=== PATIENT | male | born 1975 | race Caucasian/White ===

== ENCOUNTER 2018-03-19 09:49 | Emergency (ER) | payer BC ==
[2018-03-19 09:59] VITALS: TEMP 98.3; BMI 29.1
--- NOTE | 2018-03-19 10:01 | PDOC ---
History of Present Illness - General Chief Complaint: Psychiatric Stated Complaint: PCP SENT Time Seen by Provider: 03/19/18 09:56 - History of Present Illness Initial Comments: 42 year old male with PMH of HTN, and GERD presenting with multiple episodes of tachycardia, nausea, dry heaving, and trouble sleeping. He has had episodes of nausea/vomiting/ dry heaving since college before exams or during stressful situations. Currently he has had notice increased frequency of these episodes since July. States that he woke up three times last night with racing thoughts, fast heart rate, sara would then evolve into dry heaving. He is being treated by Dr. 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 States when these episodes occur, he is actively worried that something very bad is going to happen and that worsens his symptoms. In fact he has been slightly anxious to eat food because of these episodes. He denies any chest pain, diaphoresis, or visual symptoms during these episodes. He is unsure what triggers these symptoms but, again, did have them during anxious pre-test days in college. 03/19/18 10:09 Past History - Past Medical History Allergies/Adverse Reactions: Allergies Allergy/AdvReac Type Severity Reaction Status Date / Time fish derived Allergy Intermediate Swelling Verified 03/19/18 10:00 Penicillins Allergy Intermediate Hives Verified 03/19/18 10:57 shellfish derived Allergy Intermediate Swelling Verified 03/19/18 10:00 Home Medications: Ambulatory Orders Atorvastatin Ca [Lipitor] 20 mg PO HS 03/19/18 Motillium 10 mg PO TID 03/19/18 Olmesartan Medoxomil [Benicar] 20 mg PO DAILY 03/19/18 Ondansetron HCl [Zofran] 4 mg PO TID PRN 03/19/18 Pantoprazole Sodium [Protonix] 40 mg PO DAILY 03/19/18 Rifaximin [Xifaxan] 0 mg PO BID 03/19/18 COPD: No GI Disorders: Yes HTN: Yes - Suicide/Smoking/Psychosocial Hx Smoking History: Never smoked Have you smoked in the past 12 months: No Information on smoking cessation initiated: No Hx Alcohol Use: No Drug/Substance Use Hx: No Substance Use Type: None Review of Systems - Review of Systems Constitutional: No: Chills, Diaphoresis, Fever Respiratory: No: Cough, Orthopnea, Shortness of Breath Cardiac (ROS): No: Chest Pain ABD/GI: No: Diarrhea, Nausea, Vomiting : No: Burning, Dysuria, Discharge Musculoskeletal: No: Back Pain, Joint Pain, Joint Swelling Integumentary: No: Flushing, Lesions, Lumps Neurological: No: Headache, Numbness, Paresthesia, Tremors Psychiatric: Yes: Anxiety, Sleep Pattern Change, Change in Appetite. No: Frequent Crying, Stressors Hematologic/Lymphatic: No: Anemia, Blood Clots, Easy Bleeding *Physical Exam - Vital Signs Last Vital Signs Temp Pulse Resp BP Pulse Ox 98.3 F 98 H 16 137/87 100 03/19/18 09:50 03/19/18 09:50 03/19/18 09:50 03/19/18 09:50 03/19/18 09:50 - Physical Exam General Appearance: Yes: Nourished, Appropriately Dressed. No: Apparent Distress HEENT: positive: EOMI, MONE, Normal ENT Inspection, Normal Voice Neck: positive: Trachea midline, Normal Thyroid, Supple. negative: Tender, Rigid Respiratory/Chest: positive: Lungs Clear, Normal Breath Sounds. negative: Chest Tender, Respiratory Distress, Accessory Muscle Use Cardiovascular: positive: Regular Rhythm, Regular Rate Gastrointestinal/Abdominal: positive: Normal Bowel Sounds, Flat, Soft. negative : Tender Lymphatic: negative: Adenopathy, Tenderness Musculoskeletal: negative: Normal Inspection, CVA Tenderness Extremity: positive: Normal Inspection, Normal Range of Motion. negative: Normal Capillary Refill, Tender Integumentary: positive: Normal Color, Dry, Warm Neurologic: positive: cardiographer II-XII NML intact, Fully Oriented, Alert, Normal Mood/ Affect, Normal Response, Motor Strength 5/5 ED Treatment Course - LABORATORY CBC & Chemistry Diagram: 03/19/18 11:43 03/19/18 10:36 Medical Decision Making - Medical Decision Making 42 year old male with PMH of HTN, HLD, and GERD presenting with acute exacerbation of what appears to be anxiety related GI symptoms. He clearly describes the sensation of worry and tachycardia preceding his nausea/ vomiting / dry heaving. His EKG was NSR (rate 92, OK 152, QRS 90, QTc 432, ST or T wave changes). He tolerated PO rackers and water. He understands the workup and results. He would like to go home. We discussed the case with Dr. Deluna and he is OK with outpatient follow up and likely outpatient PCP. 03/19/18 11:59 *DC/Admit/Observation/Transfer Diagnosis at time of Disposition: Nausea & vomiting Qualifiers: Vomiting type: unspecified Vomiting Intractability: non-intractable Qualified Code(s): R11.2 - Nausea with vomiting, unspecified - Discharge Dispostion Disposition: HOME Condition at time of disposition: Stable Decision to Admit order: No - Referrals Referrals: Miguel Deluna MD [Primary Care Provider] - - Patient Instructions Printed Discharge Instructions: Nausea and Vomiting-Adult Additional Instructions: Please mind your diet and try to stay well hydrated with water. Dr. Deluna prescribed you a medicine to help with your anxiety that you should take as directed. Please follow up with him and schedule an appointment with the psychiatrist that he sets you up with. Please return to the ED if you have new or worsening symptoms. - Post Discharge Activity
[2018-03-19] MEDS ORDERED: SODIUM CHLORIDE 1,000 ML IV STA (10:24)
[2018-03-19 10:47] LABS: URINE APPEARANCE CLEAR; URINE BILIRUBIN NEGATIVE (<2.0 mg/dL); URINE COLOR LTYELLOW; URINE GLUCOSE (UA) NEGATIVE (NEGATIVE); URINE KETONE NEGATIVE (NEGATIVE); URINE LEUK ESTERASE NEGATIVE (NEGATIVE); URINE NITRITE NEGATIVE (NEGATIVE); URINE PROTEIN NEGATIVE (NEGATIVE); URINE UROBILINOGEN NEGATIVE mg/dL (0.2-1.0)
[2018-03-19 10:56] LABS: ALBUMIN 4.4 g/dl (3.4-5.0); ANION GAP 5 MMOL/L (8-16); BLOOD UREA NITROGEN 18 mg/dL (7-18); CALCIUM 9.1 mg/dL (8.5-10.1); CHLORIDE 105 mmol/L (98-107); CO2 29 mmol/L (21-32); GLUCOSE,RANDOM 109 mg/dL (74-106); SODIUM 139 mmol/L (136-145)
[2018-03-19 11:01] LABS: BILIRUBIN,TOTAL 0.8 mg/dL (0.2-1.0); CREATININE 1.3 mg/dL (0.7-1.3); SGOT/AST 34 U/L (15-37); SGPT/ALT 37 U/L (12-78); TOT PROT 7.8 g/dl (6.4-8.2)
[2018-03-19 11:06] LABS: ALK PHOS 64 U/L (45-117)
[2018-03-19 11:07] LABS: COCAINE, UR NEGATIVE ng/ml (CUTOFF=300); METHADONE, UR NEGATIVE ng/ml (CUTOFF=300); OPIATES, URI NEGATIVE ng/ml (CUTOFF=300); PHENCYCLIDINE,URINE NEGATIVE ng/ml (CUTOFF=25); URINE AMPHETAMINES NEGATIVE ng/ml (CUTOFF=500); URINE BARBITURATES NEGATIVE ng/ml (CUTOFF=200); URINE BENZODIAZEPINES NEGATIVE ng/ml (CUTOFF=200)
[2018-03-19 11:49] LABS: BASO % 0.9 % (0-2.0); EOS % 0.7 % (0-4.5); HEMATOCRIT 41.8 % (35.4-49); HEMOGLOBIN 14.7 GM/dL (11.7-16.9); LYMPH % 13.2 % (8-40); MCH 30.5 pg (25.7-33.7); MCHC 35.3 g/dl (32.0-35.9); MEAN CELL VOLUME 86.3 fl (80-96); MEAN PLT VOLUME 7.9 fl (7.5-11.1); MONO % 4.9 % (3.8-10.2); NEUT % 80.3 % (42.8-82.8); PLATELET COUNT 204 K/MM3 (134-434); RBC 4.84 M/mm3 (4.00-5.60); RDW 12.8 % (11.9-15.9)
[2018-03-19 12:31] VITALS: BP 138/88; PULSE 97
--- NOTE | 2018-03-19 12:37 | PDOC ---
Attending Attestation - Resident Resident Name: Claudio Williamson - ED Attending Attestation I have performed the following: I have examined & evaluated the patient, The case was reviewed & discussed with the resident, I agree w/resident's findings & plan, Exceptions are as noted - Medical Decision Making 03/19/18 12:30 42-year-old male with a history of anxiety associated with nausea and vomiting here today from Dr. Lowe's office for concerns for worsening periods of anxiety. 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 Deluna who recommended starting an SSRI states he will call in the pharmacy patient with close follow up with Dr. Deluna and told to return for any concerns or problems <Dulce Maria Damon - Last Filed: 03/19/18 12:30> - HPI HPI: 03/19/18 12:37 Patient is a 42 year old male with a past medical history of GERD and HTN who presents to the emergency department for evaluation of multiple episodes of palpitations, difficulty sleeping, and nausea. Patient notes a history of anxiety prior to tests with associated nausea, vomiting, and palpitations when he was in college. Today, the patient presents for evaluation of symptoms associated with 3 episodes last night consisting of racing thoughts, palpitations, and nausea with dry heaving. Patient reports that Dr. Deluna scoped him with EGD which revealed lower esophageal dysfunction recently. He states was sent to ED for further evaluation by his PCP Dr. Deluna. The patient denies new stressors, drug use, hallucinations or ideations of self harm, chest pain, shortness of breath, headache, fever, chills, and any bowel/ urinary symptoms. Allergies: Penicillins. Fish and shellfish derived. - Physicial Exam PE: GENERAL: Awake, alert, and fully oriented, in no acute distress HEAD: No signs of trauma EYES: PERRLA, EOMI, sclera anicteric, conjunctiva clear ENT: Auricles normal inspection, hearing grossly normal, nares patent. Moist mucosa NECK: Normal ROM, supple, no lymphadenopathy, JVD, or masses LUNGS: Breath sounds equal, clear to auscultation bilaterally. No wheezes, and no crackles HEART: Regular rate and rhythm, normal S1 and S2, no murmurs, rubs or gallops ABDOMEN: Soft, nontender, normoactive bowel sounds. No guarding, no rebound. No masses EXTREMITIES: Normal range of motion, no edema. No erythema or tenderness. DP/PT pulses 2+ and symmetric. Warm and well perfused. NEUROLOGICAL: Moves all extremities. Normal speech, normal gait SKIN: Warm, Dry, normal turgor, no rashes or lesions noted. <Rubio Brand - Last Filed: 03/19/18 12:39> Attestations - Attestations Documentation prepared by Rubio Brand, acting as medical center representative for Dulce Maria Damon MD. <Rubio Brand - Last Filed: 03/19/18 12:39>
--- NOTE | 2018-03-19 21:55 | EKG ---
Test Reason : Blood Pressure : / mmHG Vent. Rate : 092 BPM Atrial Rate : 092 BPM P-R Int : 152 ms QRS Dur : 090 ms QT Int : 350 ms P-R-T Axes : 039 023 033 degrees QTc Int : 432 ms NORMAL SINUS RHYTHM LOW VOLTAGE QRS BORDERLINE ECG NO PREVIOUS ECGS AVAILABLE Confirmed by BREANNE RIVERA MD ([id number]) on 03/19/2018 9:54:31 PM Referred By: Confirmed By:BREANNE RIVERA MD
== END 2018-03-19 12:28 | disposition home or self-care (01) ==
LOC: JER 09:49
PROC: 3E0337Z Introduction of Electrolytic and Water Balance Substance into Peripheral Vein, Percutaneous Approach (ICD-10-PCS; principal; 2018-03-19)
DX: R11.2 Nausea with vomiting, unspecified (principal); F41.9 Anxiety disorder, unspecified; I10 Essential (primary) hypertension; K21.9 Gastro-esophageal reflux disease without esophagitis
CPT/HCPCS: 36415; 80053; 80307; 81003; 84443; 85025; 93005; 93010; 99282-25; J7030